=== PATIENT | female | born 1955 | race Caucasian/White ===

== ENCOUNTER 2021-11-02 09:30 | Emergency (ER) | payer MEDICARE, SELFPAY ==
[2021-11-02 10:13] VITALS: BP 128/64; PULSE 72; RESP 12; TEMP 35.9; O2SAT 98; BMI 30.4
[2021-11-02 10:16] LABS: Appearance Urine CLEAR; Glucose Urine UA NEG (NEG); Leukocyte Esterase Urine NEG (NEG); PH 5.5 (5.0-8.0); Specific Gravity - Urine 1.015 (1.005-1.025); UACC Culture Trigger YES; Urine Blood NEG (NEG); Urine Ketones NEG (NEG); Urine Protein NEG (NEG-TRACE)
[2021-11-02 10:28] LABS: Color Urine AMBER
[2021-11-02 10:29] LABS: RBC Urine 0 /HPF (0); Squamous Epithelial Cell Urine 1+ /LPF; WBC Urine 0 /HPF (0-4)
--- NOTE | 2021-11-02 14:13 | ED_ITS ---
HPI - Abdominal Pain General Chief Complaint: Abdominal Pain Stated Complaint: abd pain low back pain Time Seen by Provider: 11/02/21 10:48 History of Present Illness HPI narrative: Patient with low back pain and burning with urination. Went to [facility] yesterday and was never seen. No fever no chills MD elicited complaint: abdominal pain Onset (ago): day(s) Pain Consistency: constant Severity: mild Radiation: bilateral flank Associated symptoms: denies other symptoms Related Data Previous Rx's Medication Instructions Recorded cyclobenzaprine 10 mg tablet 10 mg PO TID #10 tabs 11/02/21 naproxen 500 mg tablet (Naprosyn) 500 mg PO BID #20 tabs 11/02/21 Allergies Allergy/AdvReac Type Severity Reaction Status Date / Time No Known Allergies Allergy Verified 11/02/21 10:00 Review of Systems Constitutional: Reports no additional constitutional complaints Eyes: Reports no additional eye complaints Denies dizziness Cardiovascular: Reports no additional cardiovascular complaints Respiratory: Reports as per HPI Gastrointestinal: Reports no additional gastrointestinal complaints Genitourinary: Reports no additional female genitourinary complaints Musculoskeletal: Reports no additional musculoskeletal complaints Skin/Breast: Denies rash Reports system reviewed and no additional complaints, except as documented, Denies dizziness and Denies Sensory deficit (Neuro) Psychiatric: Denies anxiety [facility] Social History Social History Advance Directives: No Advance Directives Information Provided: Yes Physical Exam ED Vital Signs: Vital Signs - 24 hr 11/02/21 10:13 Temperature 96.7 F L Pulse Rate 72 Respiratory Rate 12 Blood Pressure 128/64 Pulse Oximetry 98 Oxygen Delivery Method Room Air BMI result Body Mass Index 30.4 Const General: healthy appearing Nutritional Appearance: average body habitus Orientation/consciousness: oriented to person and patient oriented x3 Limitations: no limitations HENMT Head: Yes normal to inspection Ears: external ears normal General nose exam: Normal external nose present Mouth: Normal oral and palatal mucosa present and oropharynx normal Throat: Yes posterior oropharynx normal Eyes General: appearance normal, both eyes and all related structures Neck Neck: Yes normal visual inspection Chest Chest palpation & inspection: normal inspection of the chest Resp Auscultation: clear to auscultation bilaterally Cardio Jugular venous distension: no JVD Rate: regular rate Rhythm: regular rhythm Heart sounds: S1 normal heart sound present and S2 normal heart sound present GI Inspection: Yes normal to inspection Palpation (GI): Soft to palpation, nontender and No hepatosplenomegaly present Auscultation: normal bowel sounds Back/Spine/Pelvis Other: Left SI and sciatic tenderness to palpation, pretty severe Skin General skin exam: no rashes or lesions noted Neuro General: oriented to person and patient oriented x3 Cranial nerves: Yes CN's II-XII intact bilaterally Motor exam (neuro): 5/5 motor strength present throughout Sensory Exam: No Sensory deficit (Neuro) Extrem General: Yes normal to inspection Psych Appearance: grossly normal Course Reevaluation(s) Reevaluation #1: Urine is negative, physical exam most consistent with SI and sciatic notch tenderness will start nsaids and flexeril Time: 14:24 MDM - Abdominal Pain Lab Data Labs: Lab Results 11/02/21 Range/Units 10:03 Urine Color LASHAUN Urine Appearance CLEAR Urine pH 5.5 (5.0-8.0) Ur Specific [place] 1.015 (1.005-1.025) Urine Protein NEG (NEG-TRACE) MG/DL Urine Glucose (UA) NEG (NEG) MG/DL Urine Ketones NEG (NEG) MG/DL Urine Blood NEG (NEG) Urine Nitrite SEE NOTE (NEG) Ur Leukocyte Esterase NEG (NEG) Urine RBC 0 (0) /HPF Urine WBC 0 (0-4) /HPF Ur Squamous Epith Cells 1+ /LPF Urine Bacteria NONE /LPF Discharge Plan Discharge Clinical Impression: Back pain, Sciatica Patient Disposition: Home, Self-Care Instructions: Sciatica (ED), Acute Low Back Pain (ED), Back Pain (ED) Prescriptions: New cyclobenzaprine 10 mg tablet 10 mg PO TID Qty: 10 0RF naproxen [Naprosyn] 500 mg tablet 500 mg PO BID Qty: 20 0RF Referrals: Charles Coates FNP [Primary Care Provider] - 1 week
[2021-11-02 14:23] VITALS: BP 199/83; PULSE 65; RESP 19; TEMP 36.6; O2SAT 99
[2021-11-02] MEDS: Cyclobenzaprine HCl 10 MG TABLET PO (15:12)
== END 2021-11-02 15:15 | disposition home or self-care (01) ==
PROVIDERS: Emergency Provider Emergency Medicine; PCP Nurse Practitioner Family
DX: M54.42 Lumbago with sciatica, left side (principal)
CPT/HCPCS: 81001; 96372; 99284

== ENCOUNTER 2023-05-11 12:49 | Emergency (ER) | payer MEDICARE, SELFPAY ==
--- NOTE | ~2023-05-11 | CT_ITS ---
EXAMINATION: CT ABDOMEN AND PELVIS WITH CONTRAST CLINICAL INFORMATION: Epigastric, left-sided abdominal pain. COMPARISON: None available. TECHNIQUE: Multidetector volumetric images were obtained from the superior aspect of the liver through the pubic symphysis following administration 85 mL of Omnipaque 350 intravenous contrast. Sagittal and coronal reformatted images were obtained on the technologist's workstation. Oral contrast: No This CT examination was performed using dose optimization techniques as appropriate, variously including the following: *Automated exposure control *Adjustment of mA and/or kV according to patient size (this includes techniques or standardized protocols for targeted exams where dose is matched to indication/reason for exam; i.e. extremities or head) *Use of iterative reconstruction technique DLP: 684 mGy-cm FINDINGS: LUNG BASES: Bronchial wall thickening. Group of calcified granulomas dependently in the right greater than left lung bases. No focal consolidation or pleural effusion. LIVER, GALLBLADDER, AND BILIARY TREE: Mild predominantly left-sided intrahepatic biliary ductal dilatation. No extrahepatic biliary ductal dilatation, the common bile duct measures 0.6 cm in diameter. A few hyperdense foci are noted in the gallbladder bed (3:21) that are suggestive of postsurgical changes with trace residual gallbladder/cystic duct following cholecystectomy, correlate with surgical history. No significant inflammatory changes to suspect acute cholecystitis. The liver is normal in size, morphology and attenuation. Focal fatty infiltration adjacent to the fissure of the falciform ligament in the inferior left hepatic lobe (4:161). PANCREAS: Unremarkable. SPLEEN: Unremarkable. ADRENAL GLANDS: Unremarkable. KIDNEYS AND URETERS: A few bilateral simple cysts, as well as additional too small to characterize cortical hypodensities that are in favor to represent simple cysts, for which no imaging follow-up is recommended. Symmetric nephrograms. No nephrolithiasis or hydronephrosis. No significant perinephric fat stranding. BLADDER: Unremarkable. GASTROINTESTINAL TRACT: The stomach and the small bowel are nondilated. A few mildly hyperemic loops of small bowel with mild wall thickening and fluid distention are noted in the lower abdomen at the level of the distal ileum. There is equivocal minimal hyperemia of the terminal ileum. Mild fluid distention is noted in the ascending colon that could be seen with diarrhea. Normal appendix. Mild colonic diverticulosis without significant pericolonic inflammatory changes to suggest acute diverticulitis. No evidence of bowel obstruction. ABDOMINAL WALL: No significant hernia is appreciated. LYMPH NODES: No lymphadenopathy. VASCULAR: Atherosclerotic disease. Normal caliber abdominal aorta. PELVIC VISCERA: Hysterectomy. No free fluid. OSSEOUS STRUCTURES: Degenerative change of the spine. Chronic appearing deformity of the pubic symphysis with increased sclerosis that is most likely degenerative in nature. No acute or aggressive appearing osseous findings. CT/CT abdomen pelvis w IV con IMPRESSION: 1. Mild hyperemia, wall thickening and fluid distention of the distal ileum/terminal ileum suspicious for acute enteritis, indeterminate etiology. Inflammatory bowel disease such as Crohn's is not excluded, recommend outpatient referral to GI. 2. Nonspecific mild intrahepatic biliary ductal dilatation. Correlate with laboratory findings and if indicated consider further characterization with MRCP. 3. Mild colonic diverticulosis but no evidence of acute diverticulitis. 4. Bronchial wall thickening suggesting small airways disease.
[2023-05-11 13:21] VITALS: BP 149/71; PULSE 69; RESP 18; TEMP 36.4; O2SAT 96; BMI 27.3
--- NOTE | 2023-05-11 13:21 | ED_ITS ---
HPI - General Adult General Chief complaint: Nausea/Vomiting/Diarrhea Stated complaint: weak, vomiting Time Seen by Provider: 05/11/23 18:35 Source: patient and family (Son, Asad) Mode of arrival: ambulatory Limitations: no limitations History of Present Illness HPI narrative: 68-year-old female with a history of diabetes mellitus, hypertension, hypothyroidism status post thyroidectomy, kidney stone, cholecystectomy 4 month prior who presents emergency department for evaluation of nausea, vomiting, diarrhea and abdominal pain x4 days. Patient states she has having a burning sensation and she points to her epigastric area and chest when asked to localize the pain. She also is having left-sided pain. Patient states that she has not been able to eat or drink secondary to pain, nausea and vomiting. She has also had 2-3 episodes of loose diarrheal stool per day. Patient denied fever but has been having shaking chills. She states she is feeling weak and fatigued. She denied myalgias arthralgias. Related Data Previous Rx's Medication Instructions Recorded cyclobenzaprine 10 mg tablet 10 mg PO TID #10 tabs 11/02/21 naproxen 500 mg tablet (Naprosyn) 500 mg PO BID #20 tabs 11/02/21 aluminum hydrox-magnesium carb 254 10 ml PO QID PRN dyspepsia #355 mL 05/11/23 mg-237.5 mg/5 mL oral suspension (Gaviscon Extra Strength) ondansetron 4 mg disintegrating 4 mg PO Q6-8H PRN nausea and 05/11/23 tablet vomiting #14 tabs Allergies Allergy/AdvReac Type Severity Reaction Status Date / Time No Known Allergies Allergy Verified 05/11/23 13:21 Review of Systems 2 Review of Systems: Yes all other systems are reviewed and are negative [facility] Past Medical History [facility] Narrative: Past medical history: Diabetes mellitus, hypertension, 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 Surgical history: Cholecystectomy 4 months prior, thyroid surgery. Onset Date is defined in the Problem List Problems that require an onset date and time if occurred within 24 hrs of arrival to the ED Aortic Dissection and Rupture; Neurologic impairment; Cardiopulmonary Arrest; Endotracheal Intubation; Insertion or Replacement of Mechanical Circulatory Assist Device Social History Social History Advance Directives: No Advance Directives Information Provided: No Physical Exam ED Vital Signs: Vital Signs - 24 hr 05/11/23 13:21 05/11/23 19:05 Temperature 97.5 F 98.1 F Pulse Rate 69 77 Respiratory Rate 18 18 Blood Pressure 149/71 H 142/65 H Pulse Oximetry 96 99 Oxygen Delivery Method Room Air Room Air BMI result Body Mass Index 27.3 Vital signs revealed an elevated blood pressure otherwise unremarkable Exam General: Awake, alert in no distress Head: Normocephalic, atraumatic EENT: PERRL, Lids normal, sclera normal, conjunctiva normal, nose normal , ears normal, throat without erythema or exudates Neck: Supple, no adenopathy, no trachea midline or C-spine tenderness Lung: breath sounds symmetric, no wheezing, rales or rhonchi Chest: symmetric movement, nontender Heart: regular rate and rhythm, normal S1, S2 no murmurs or rubs Abdomen: Moderate epigastric tenderness, moderate left-sided tenderness, normoactive bowel sounds, no abdominal distension, no rebound Back: no vertebral tenderness, no CVAT Extremities: no deformities, moves all extremities symmetrically Neuro: Awake, alert, oriented, normal speech, cranial nerves intact, moves all extremities symmetrically Psych: Pleasant, cooperative Course Course Course Narrative: This is an RME: Additional HPI, ROS, PE not included below will be deferred to primary provider. Patient is a 68-year-old female who presents emergency department for evaluation of 4 days ago she was experiencing upper abdominal pain with nausea vomiting and poor p.o. intake. She was seen at a hospital in [place] 4 days ago, had blood work and urine testing done, ultimately left from the waiting room due to wait time, she did receive a medication which did help with her symptoms but they have been persistent. She is increasingly more weak over the past few days. States sometimes she is having dysuria. Reports history of similar pain due to her gallbladder, s/p cholecystectomy 4 months ago at [facility]. Plan: Labs, urinalysis, viral testing Medications Administered Discontinued Medications Generic Name Dose Route Start Last Admin Trade Name Freq PRN Reason Stop Dose Admin Famotidine 20 mg 05/11/23 18:46 05/11/23 19:02 Famotidine/Pf 20 Mg/2 Ml Vial IVPUSH 05/11/23 18:47 20 mg ONCE ONE Administration Sodium Chloride 1,000 mls @ 999 mls/hr 05/11/23 18:46 05/11/23 19:02 Ns IV 05/11/23 19:46 999 mls/hr .Q1H1M STA Administration Iohexol 100 ml 05/11/23 19:27 05/11/23 19:27 Iohexol 350 Mg/Ml 100 Ml Infus..Btl IV 05/11/23 19:28 85 ml ONCE ONE Administration Morphine Sulfate 4 mg 05/11/23 18:46 05/11/23 19:02 Morphine Sulfate 4 Mg/Ml Cartridge IVPUSH 05/11/23 18:47 4 mg ONCE STA Administration Protocol Ondansetron HCl 4 mg 05/11/23 18:46 05/11/23 19:02 Ondansetron Hcl 4 Mg/2 Ml Vial IVPUSH 05/11/23 18:47 4 mg ONCE ONE Administration Medical Decision Making Medical Decision Making [facility] Narrative: 68-year-old female with a history of diabetes mellitus, hypertension, hypothyroidism status post thyroidectomy, kidney stone, cholecystectomy 4 month prior who presents emergency department for evaluation of nausea, vomiting, diarrhea and abdominal pain x4 days. Exam revealed epigastric and left upper quadrant tenderness. Following evaluation was ordered: CBC, CMP, COVID-19, influenza, lipase, urinalysis, magnesium, CT scan of the abdomen pelvis with IV contrast Patient was treated with the following medications: Pepcid 20 mg IV, morphine 4 mg IV, Zofran 4 mg IV, normal saline x1 L. 18:52 My interpretation patient's laboratory evaluation as follows: COVID-19 and influenza were negative. CBC and CMP were normal. Lipase was negative. Urinalysis was negative. 21:57 CT scan of the patient's abdomen pelvis was consistent with enteritis which I believe is most likely caused by a viral infection. Patient is feeling better after the above treatment. Patient was able to the eat Moise crackers and drink georgie kathy. Patient will be prescribed Zofran ODT 4 mg every 6 hours as needed for nausea vomiting, extra-strength Gaviscon 10 cc 4 times a day for her dyspepsia and advised to take Tylenol for her pain. She was given printed and verbal instructions and discharged home Differential Diagnosis Differential Diagnoses: The differential diagnosis associated with the presentation includes Differential diagnosis includes was not limited to COVID-19 infection, viral infection, influenza, gastritis, diverticulitis, pancreatitis Admission/Observation Consideration of admission/observation: Escalation of care including admission/observation considered Lab Data MDM Lab Attestation statement: I reviewed the patient's lab results. 05/11/23 15:01 05/11/23 15:01 Labs: Lab Results 05/11/23 05/11/23 Range/Units 15:01 15:08 WBC 7.1 (4.8-10.8) X10*3/uL RBC 4.64 (4.20-5.50) X10*6/uL Hgb 13.4 (12.0-16.0) g/dl Hct 39.9 (37.0-47.0) % MCV 86.0 (80.0-98.0) fL MCH 28.9 (27.0-33.0) pg MCHC 33.6 (31.0-35.0) g/dl RDW 13.2 (11.0-16.0) % Plt Count 198 (160-400) X10*3/uL MPV 10.0 (9.4-12.3) fL Immature Gran % (Auto) 0.3 (0.0-0.4) % Neut % (Auto) 78.8 H (45-73) % Lymph % (Auto) 15.2 L (20-40) % Fleming % (Auto) 4.7 (2-11) % Eos % (Auto) 0.6 (0-4) % Baso % (Auto) 0.4 (0-2) % Lymph # (Auto) 1.1 L (1.2-4.9) X10*3/uL Fleming # (Auto) 0.3 (0.1-1.2) X10*3/uL Eos # (Auto) 0.0 (0.0-0.4) X10*3/uL Baso # (Auto) 0.0 (0.0-0.2) X10*3/uL Abs Immat Gran (auto) 0.02 (0.00-0.03) X10*3/uL Absolute Neuts (auto) 5.6 (2.0-8.3) x10*3/uL Absolute Nucleated RBC 0.000 (0.0-0.012) X10*3/uL Nucleated RBC % (auto) 0.0 (0.0-0.2) /100WBC Sodium 142 (135-145) mmol/L Potassium 4.0 (3.3-5.1) mmol/L Chloride 108 (96-108) mmol/L Carbon Dioxide 27 (22-29) mmol/L Anion Gap 11 L (12-20) BUN 15 (9-16) mg/dL Creatinine 1.33 (0.5-1.4) mg/dL Estim Creat Clear Calc 38.3 Estimated GFR 39 Random Glucose 101 (60-115) mg/dL Calcium 8.4 (8.4-10.2) mg/dL Magnesium 2.1 (1.6-2.6) mg/dL Total Bilirubin 0.8 (0.0-1.0) mg/dL AST 14 (5-31) U/L ALT 13 (0-31) U/L Alkaline Phosphatase 88 (39-117) U/L Total Protein 7.1 (6.5-8.0) g/dL Albumin 4.1 (3.5-5.0) g/dL Lipase 19 (8-78) U/L Urine Color Yellow Urine Appearance Clear Urine pH 6.5 (5.0-9.0) Ur Specific [place] 1.010 (1.005-1.025) Urine Protein Negative (Neg-Trace) mg/dL Urine Glucose (UA) Negative (Negative) mg/dL Urine Ketones Negative (Negative) mg/dL Urine Blood Negative (Negative) Urine Nitrite Negative (Negative) Ur Leukocyte Esterase Negative (Negative) COVID-19 (ION) Negative (Negative) COVID-19 Clin Com See Note Influenza Type A (HIEU) Negative (Negative) Influenza Type B (HIEU) Negative (Negative) Influenza A & B Note See Note Radiology Impression Discussion of test interpretation with radiology: I have reviewed the radiologist's reading. Radiologist Impression: CT abdomen pelvis w IV con IMPRESSION: 1. Mild hyperemia, wall thickening and fluid distention of the distal ileum/terminal ileum suspicious for acute enteritis, indeterminate etiology. Inflammatory bowel disease such as Crohn's is not excluded, recommend outpatient referral to GI. 2. Nonspecific mild intrahepatic biliary ductal dilatation. Correlate with laboratory findings and if indicated consider further characterization with MRCP. 3. Mild colonic diverticulosis but no evidence of acute diverticulitis. 4. Bronchial wall thickening suggesting small airways disease. Dictated By: Amie Phillips Independent Historian Clinical information obtained from an independent historian. History obtained from or confirmed by: Other (Son and daughter) Prescription Management I considered prescription management with: Other (Antiemetics, antacids and Tylenol) Chronic Conditions Patient?s care impacted by: Diabetes and Hypertension Discharge Plan Discharge Clinical Impression: Viral syndrome, Enteritis Vomiting Qualifiers: Vomiting type: unspecified Nausea presence: with nausea Qualified Code(s): R 11.2 - Nausea with vomiting, unspecified Diarrhea Qualifiers: Diarrhea type: unspecified type Qualified Code(s): R19.7 - Diarrhea, unspecified Abdominal pain Qualifiers: Abdominal location: epigastric Qualified Code(s): R10.13 - Epigastric pain Patient Disposition: Home, Self-Care Instructions: Viral Syndrome (ED) Additional Instructions: Your blood work was normal. Your CT scan was consistent with viral enteritis (inflammation of your intestine causing nausea, vomiting and diarrhea) Take Zofran ODT 4 mg pills, 1 pill dissolved in your mouth every 8 hours as needed for nausea and vomiting. Take extra-strength Gaviscon 10 mL (2 tsp) 4 times a day as needed for abdominal pain. Take Tylenol (acetaminophen) 500 mg pills, 2 pills every 6 hours as needed for pain or fever. Follow-up with your doctor in 2 days. Please return to the emergency department if your symptoms get worse or if you develop any symptoms that are concerning to you. Prescriptions: New Gaviscon Extra Strength 254-237.5 mg/5 mL suspension 10 ml PO QID PRN (Reason: dyspepsia) Qty: 355 0RF ondansetron 4 mg tablet,disintegrating 4 mg PO Q6-8H PRN (Reason: nausea and vomiting) Qty: 14 0RF No Action cyclobenzaprine 10 mg tablet 10 mg PO TID Qty: 10 0RF naproxen [Naprosyn] 500 mg tablet 500 mg PO BID Qty: 20 0RF
[2023-05-11 15:13] LABS: MANUAL DIFF FLAG NO
[2023-05-11 15:16] LABS: Basophils Percent Auto 0.4 % (0-2); Eosinophils Percent Auto 0.6 % (0-4); Hematocrit 39.9 % (37.0-47.0); Hemoglobin 13.4 g/dl (12.0-16.0); Imm Gran Abs Auto 0.02 X10*3/uL (0.00-0.03); Imm Gran Pct Auto 0.3 % (0.0-0.4); Lymphocytes Absolute Auto 1.1 X10*3/uL (1.2-4.9); Lymphocytes Percent Auto 15.2 % (20-40); Mean Corpuscular HGB Conc 33.6 g/dl (31.0-35.0); Mean Corpuscular Hemoglobin 28.9 pg (27.0-33.0); Monocytes Absolute Auto 0.3 X10*3/uL (0.1-1.2); Monocytes Percent Auto 4.7 % (2-11); Neutrophils Absolute Auto 5.6 x10*3/uL (2.0-8.3); Neutrophils Percent Auto 78.8 % (45-73); Platelet Count 198 X10*3/uL (160-400); Red Blood Count 4.64 X10*6/uL (4.20-5.50); Red Cell Distribution Width 13.2 % (11.0-16.0); White Blood Count 7.1 X10*3/uL (4.8-10.8)
[2023-05-11 15:32] LABS: Appearance Urine Clear; Color Urine Yellow; Glucose Urine UA Negative (Negative); Leukocyte Esterase Urine Negative (Negative); Nitrite Urine Negative (Negative); PH 6.5 (5.0-9.0); Urine Blood Negative (Negative); Urine Ketones Negative (Negative); Urine Protein Negative (Neg-Trace)
[2023-05-11 15:32] LABS: Alanine Aminotransferase 13 U/L (0-31); Albumin Level 4.1 g/dL (3.5-5.0); Alkaline Phosphatase 88 U/L (39-117); Anion Gap 11 (12-20); Aspartate Amino Transferase 14 U/L (5-31); Bilirubin Total 0.8 mg/dL (0.0-1.0); Blood Urea Nitrogen 15 mg/dL (9-16); Calcium 8.4 mg/dL (8.4-10.2); Carbon Dioxide 27 mmol/L (22-29); Chloride 108 mmol/L (96-108); Creatinine Clr Calc Pharmacy 38.3; Estimated Glomerular Filt Rate 39; Glucose Random 101 mg/dL (60-115); Lipase 19 U/L (8-78); Magnesium 2.1 mg/dL (1.6-2.6); Sodium 142 mmol/L (135-145); Total Protein 7.1 g/dL (6.5-8.0)
[2023-05-11 15:35] LABS: IDNOW Serial# 152EDE1D
[2023-05-11 15:36] LABS: COVID-19 Test Negative (Negative); IDNOW Serial# 08D9AD1C; Influenza A Negative (Negative); Influenza B2 Negative (Negative)
[2023-05-11] MEDS: 0.9 % Sodium Chloride 1,000 ML 999 ML IV (19:02)
[2023-05-11] MEDS: Morphine Sulfate 4 MG/ML CARTRIDGE IVPUSH (19:02)
[2023-05-11] MEDS: Famotidine/PF 20 MG/2 ML VIAL IVPUSH (19:02)
[2023-05-11] MEDS: ondansetron HCL 4 MG/2 ML VIAL IVPUSH (19:02)
[2023-05-11 19:05] VITALS: BP 142/65; PULSE 77; RESP 18; TEMP 36.7; O2SAT 99
[2023-05-11] MEDS: iohexoL 350 MG/ML 100 ML INFUS..BTL IV (19:27)
== END 2023-05-11 23:20 | disposition home or self-care (01) ==
PROVIDERS: Nurse Practitioner Family; Emergency Provider Emergency Medicine Emergency Medical Services
DX: B34.9 Viral infection, unspecified (principal); K52.9 Noninfective gastroenteritis and colitis, unspecified; R11.2 Nausea with vomiting, unspecified; Z79.899 Other long term (current) drug therapy; Z11.52 Encounter for screening for COVID-19; Z20.828 Contact with and (suspected) exposure to other viral communicable diseases
CPT/HCPCS: 74177; 80053; 81003; 83690; 83735; 85025; 87502; 87635; 96361; 96374; 96375; 99284; J2270; J2405; Q9967